=== PATIENT | male | born 1980 | race Caucasian/White ===

== ENCOUNTER 2016-04-12 07:44 | Day surgery (SDC) | payer OTHER ==
[~2016-04-12] VITALS: Ht 175.3 cm; Wt 107.0 kg
[~2016-04-12 07:44] MED LIST: 0.9% Sodium Chloride 1,000 ML IV SCH; CELE100C PO; ESOM40CA41 PO; Sodium Chloride LOK Flush 10 mL Syringe IV PRN; fentaNYL-PF 50 mCg/mL 2 mL Inj IVPUSH PRN
[2016-04-12 08:13] VITALS: BP 139/77; PULSE 68; RESP 17; O2SAT 99
[2016-04-12 09:44] VITALS: BP 124/79; PULSE 88; RESP 14; O2SAT 97
[2016-04-12 09:54] VITALS: BP 121/81; PULSE 87; RESP 16; O2SAT 98
--- NOTE | 2016-04-12 11:59 | ENDO ---
[address] [address] ENDOSCOPY PROCEDURE PATIENT: GAB KULKARNI : 1980 MR#: [id number] ADMIT: 04/12/2016 JOB ID: [id number] DATE OF SERVICE: 04/12/2016 TYPE OF OPERATION: Esophagogastroduodenoscopy with biopsy, with esophageal dilatation. PREOPERATIVE DIAGNOSIS(ES): Dysphagia. 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 ANESTHESIA: Fentanyl 125 mcg, Versed 6 mg IV administered. COMPLICATIONS: None. BLOOD LOSS: Minimal. DESCRIPTION OF PROCEDURE: After risks and benefits were explained to the patient, informed consent was obtained. After anesthesia administered, an upper endoscope was then inserted in the mouth, intubating the esophagus, stomach, second portion of duodenum. Mucosa carefully examined. After procedure was done, the scope withdrawn and procedure terminated. FINDINGS: Upon inspection of the esophagus, there was a benign stricture/ring seen at the mid esophagus located at 30 cm from the incisors. A regular upper scope could not pass through this. A pediatric upper scope was then exchanged and was able to pass through the stricture into the small intestine. The Z-line located at 40 cm from incisors. Upon entering the stomach, the stomach was normal without masses, ulcers, or lesions. Retroflexion normal. Duodenal bulb, first and second portions normal. Afterwards, a regular upper endoscope was then exchanged back in which biopsies were taken in the mid esophagus at the stricture/ring and a CRE TTS balloon dilatation performed at 8 to 10 mm in diameter with good mucosal tear. IMPRESSION: Stricture/ring seen in the mid esophagus at 30 cm from the incisors, status post biopsy and CRE TTS balloon dilatation performed 8 to 10 mm with good mucosal tear. RECOMMENDATIONS: 1. Continue Nexium 40 mg by mouth twice a day. 2. Repeat EGD with dilatation in two weeks.
--- NOTE | 2016-04-15 14:19 | PATH ---
SURGICAL PATHOLOGY Attending Physician:Travis Jones MD CASE STATUS: Signed Out PATIENT NAME: GAB KULKARNI PID: [id number] : 1980 DATE COLLECTED:04/12/2016 21:14 SPECIMEN: Esophagus, Biopsy CLINICAL HISTORY: 1). MID ESOPHAGEAL BIOPSY, RULE OUT EOSINOPHILIC ESOPHAGITIS FINAL DIAGNOSIS: 1.MID ESOPHAGUS BIOPSY: FRAGMENTS OF SQUAMOUS EPITHELIUM WITH REACTIVE EPITHELIAL CHANGES AND SCATTERED INTRAEPITHELIAL EOSINOPHILS FOCALLY NUMBERING UP TO 5 PER HIGH-POWERED FIELD (CHANGES CONSISTENT WITH EOSINOPHILIC ESOPHAGITIS). NEGATIVE FOR MALIGNANCY AND SIGNIFICANT ATYPIA. ICD10 CODE K20.0 GROSS DESCRIPTION: Received in formalin, labeled with the patient' s name and "mid esophageal biopsy", are two fragments of herman, soft tissue ranging in size from less than 0.1 cm by less than 0.1 cm by less than 0.1 cm to 0.1 by less than 0.1 cm by less than 0.1 cm. All fragments are totally submitted in cassette 1A. ([id number]) MICRO DESCRIPTION: See diagnosis. ICD-9 CODES: CPT CODES: 1: 78253 Electronically Signed Out Jesus Porter MD [facility] Pathology [facility] [address], [place] [address] Technical component performed at [facility], [facility] [address], [place], [address]
== END 2016-04-12 23:59 | disposition home or self-care (01) ==
LOC: END 07:44
PROVIDERS: ATTEND Internal Medicine Gastroenterology
DX: K20.0 Eosinophilic esophagitis (principal); K21.9 Gastro-esophageal reflux disease without esophagitis; R13.10 Dysphagia, unspecified; Z87.891 Personal history of nicotine dependence
CPT/HCPCS: 43239; 43249; 99153; G0500; J2250; J3010; J7030

== ENCOUNTER 2016-04-26 09:24 | Day surgery (SDC) | payer OTHER ==
[~2016-04-26] VITALS: Ht 175.3 cm; Wt 102.0 kg
[~2016-04-26 09:24] MED LIST changes: -0.9% Sodium Chloride 1,000 ML IV SCH; -Sodium Chloride LOK Flush 10 mL Syringe IV PRN; -fentaNYL-PF 50 mCg/mL 2 mL Inj IVPUSH PRN
[2016-04-26] MEDS ORDERED: 0.9% Sodium Chloride 1,000 ML ONE (09:25)
[2016-04-26] MEDS ORDERED: fentaNYL-PF 50 mCg/mL 2 mL Inj IVPUSH PRN (09:25)
[2016-04-26] MEDS ORDERED: Sodium Chloride LOK Flush 10 mL Syringe IV PRN (09:25)
[2016-04-26 09:37] VITALS: BP 130/77; PULSE 50; RESP 16; O2SAT 99
[2016-04-26] MEDS: 0.9% Sodium Chloride 1,000 ML IV PRN ×3 (09:42→10:02)
--- NOTE | 2016-04-26 10:25 | ENDO ---
[address] [address] ENDOSCOPY PROCEDURE PATIENT: GAB KULKARNI : 1980 MR#: [id number] ADMIT: 04/26/2016 JOB ID: [id number] DATE: 04/26/2016 TYPE OF OPERATION: Esophagogastroduodenoscopy with esophageal dilatation. PREOPERATIVE DIAGNOSIS(ES): Dysphagia. POSTOPERATIVE DIAGNOSIS(ES): A stricture seen in the mid esophagus at 30 cm from the incisors status post CRE TTS balloon dilatation from 10-12 mm with good mucosal tear. ANESTHESIA: 1. Fentanyl 100 mcg. 2. Versed 4 mg IV administered. COMPLICATIONS: None. BLOOD LOSS: Minimal. DESCRIPTION OF PROCEDURE: After the risks and benefits were explained to the patient, informed consent was obtained. After anesthesia administered, an upper endoscope was then inserted into the mouth, intubated into the esophagus, stomach, second portion of duodenum. Mucosa carefully examined. After procedure was done, the scope was withdrawn and the procedure terminated. FINDINGS: Upon inspection of the esophagus, the esophagus was normal without masses. In the proximal section of the esophagus, there was a mid stricture that was seen in the mid esophagus at 30 cm from the incisors. Previous biopsies were seen at this site. Z-line located 40 cm from incisors. Upon entering the stomach, the stomach was normal without masses, ulcers, lesions. Retroflexion was normal. Duodenal bulb, first and second portion were normal. A CRE TTS balloon dilatation performed at the mid esophagus at the stricture site 10-12 mm with good mucosal tear. IMPRESSIONS: 1. Benign stricture in mid esophagus at 30 cm from incisors status post CRE TTS balloon dilatation from 10-12 mm with good mucosal tear. RECOMMENDATIONS: 1. Continue Nexium 40 mg by mouth twice a day. 2. Repeat EGD with dilatation no sooner than 4-8 weeks.
[2016-04-26 10:32] VITALS: BP 113/65; PULSE 68; RESP 16; O2SAT 97
== END 2016-04-26 23:59 | disposition home or self-care (01) ==
LOC: END 09:24
PROVIDERS: ATTEND Internal Medicine Gastroenterology
DX: K22.2 Esophageal obstruction (principal); K21.9 Gastro-esophageal reflux disease without esophagitis; M19.90 Unspecified osteoarthritis, unspecified site; Z87.891 Personal history of nicotine dependence
CPT/HCPCS: 43249; G0500; J2250; J3010; J7030

== ENCOUNTER 2016-05-29 09:25 | Day surgery (SDC) | payer OTHER ==
[~2016-05-29] VITALS: Ht 175.3 cm; Wt 103.0 kg
[~2016-05-29 09:25] MED LIST changes: +0.9% Sodium Chloride 1,000 ML IV SCH; +Sodium Chloride LOK Flush 10 mL Syringe IV PRN; +fentaNYL-PF 50 mCg/mL 2 mL Inj IVPUSH PRN
[2016-05-29 10:07] VITALS: BP 110/78; PULSE 56; RESP 16; O2SAT 97
[2016-05-29] MEDS ORDERED: IBUP200C11 PO (10:07)
[2016-05-29 10:55] VITALS: BP 121/66; PULSE 58; RESP 16; O2SAT 95
[2016-05-29 11:05] VITALS: BP 121/68; PULSE 83; RESP 16; O2SAT 97
[2016-05-29 11:14] VITALS: BP 144/83; PULSE 62; RESP 16; O2SAT 97
--- NOTE | 2016-05-29 13:53 | ENDO ---
[address] [address] ENDOSCOPY PROCEDURE PATIENT: GAB KULKARNI : 1980 MR#: [id number] ADMIT: 05/29/2016 JOB ID: [id number] DATE: 05/29/2016 TYPE OF OPERATION: Esophagogastroduodenoscopy. PREOPERATIVE DIAGNOSIS(ES): Dysphagia. POSTOPERATIVE DIAGNOSIS(ES): Previous seen stricture at 30 cm from the incisors that has improved with an esophageal tear that has not healed from prior dilatation. ANESTHESIA: 1. Fentanyl 100 mcg. 2. Versed 5 mg IV administered. COMPLICATION: None. BLOOD LOSS: Minimal. DESCRIPTION OF PROCEDURE: After risks and benefits were explained to the patient, informed consent was obtained. After anesthesia administered, upper endoscope was then inserted into the mouth intubating through the esophagus, stomach, second portion of duodenum. Mucosa carefully examined. After procedure done, scope withdrawn and procedure terminated. FINDINGS: Upon inspection of the esophagus, there was a previously seen stricture that was from prior upper endoscopy at 30 cm from the incisors that is widely open and patent, but there was evidence of a non healed esophageal tear from prior dilatation. The Z-line located 40 cm from the incisors. Upon entering the stomach, the stomach was normal without masses, ulcers, lesions. Retroflexion normal. Duodenal bulb, first and second portion normal. Based upon the esophageal appearance, it was decided not to do a repeat dilatation at this time. The patient also states that he has had complete resolution of dysphagia. IMPRESSIONS: Previous seen stricture at 30 cm from incisors is widely open and patent with an unhealed esophageal mucosal tear that was seen. RECOMMENDATIONS: 1. Continue Nexium 40 mg by mouth twice a day. Carafate 1 g by mouth four times a day. 2. Avoid blood thinners if possible. 3. Followup in GI Clinic in three months to evaluate his dysphagia.
== END 2016-05-29 23:59 | disposition home or self-care (01) ==
LOC: END 09:25
PROVIDERS: ATTEND Internal Medicine Gastroenterology
DX: K22.2 Esophageal obstruction (principal); R13.10 Dysphagia, unspecified; K21.9 Gastro-esophageal reflux disease without esophagitis; M19.90 Unspecified osteoarthritis, unspecified site; Z79.1 Long term (current) use of non-steroidal anti-inflammatories (NSAID); Z87.891 Personal history of nicotine dependence
CPT/HCPCS: 43235; G0500; J7030